=== PATIENT | male | born 1945 | race Caucasian/White ===

== ENCOUNTER 2017-02-09 14:56 | Outpatient (CLI) | payer MEDICARE, OTHER ==
--- NOTE | 2017-02-09 16:04 | CT Report ---
CT OF CHEST FOR LUNG CANCER SCREENIN02/09/2017 CLINICAL INDICATION: A 71-year-old current smoker with [id number] history of smoking. COMPARISON: 12/18/2015. TECHNIQUE: Axial CT images of the chest were obtained without intravenous contrast, using low dose screening technique. FINDINGS: The heart and great vessels demonstrate atherosclerotic calcifications, mild. There is a new noncalcified pulmonary nodule in the posteromedial right upper lobe (axial lung window image 63), measuring 1.4 x 1.1 cm. The previously noted calcified granulomas are stable, and there is minimal atelectasis in the medial right middle lobe. No left-sided pulmonary nodule is identified. No effusion or pneumothorax is present. Limited evaluation of upper abdominal structures demonstrates normal adrenal glands. The osseous structures demonstrate degenerative changes. IMPRESSION: NEW 1.4 X 1.1 CM NONCALCIFIED PULMONARY NODULE IN THE POSTERIOR RIGHT UPPER LOBE. RECOMMENDATION: FURTHER EVALUATION WITH EITHER PET/CT OR BIOPSY IS RECOMMENDED. LUNG RADS CATEGORY 4B--SUSPICIOUS. In accordance with CT protocol optimization, one or more of the following dose reduction techniques were utilized for this exam: automated exposure control, adjustment of mA and/or KV based on patient size, or use of iterative reconstructive technique. JOB #: [id number] EXT JOB #: [id number] ANA LUISA
== END 2017-02-09 14:57 | disposition home or self-care (01) ==
LOC: DI 14:56
PROVIDERS: ATTEND Family Medicine
DX: Z12.2 Encounter for screening for malignant neoplasm of respiratory organs (principal); F17.210 Nicotine dependence, cigarettes, uncomplicated; R91.1 Solitary pulmonary nodule

== ENCOUNTER 2017-03-27 13:31 | Outpatient (CLI) | payer MEDICARE, OTHER | END 2017-03-27 13:32 | disposition home or self-care (01) | LOC: RT 13:31 | PROVIDERS: ATTEND Thoracic Surgery (Cardiothoracic Vascular Surgery) | DX: R91.1 Solitary pulmonary nodule (principal) | CPT/HCPCS: 94010 ==

== ENCOUNTER 2017-08-27 08:00 | Outpatient (CLI) | payer MEDICARE, OTHER ==
[2017-08-27 18:43] LABS: EOSINOPHILS # (AUTO) 0.1 10^3/uL (0.0-0.7); EOSINOPHILS % (AUTO) 2.9 %; HGB - HEMOGLOBIN 12.6 g/dL (14.0-18.0); LYMPHOCYTES # (AUTO) 1.2 10^3/uL (1.5-3.5); MEAN CORPUSCULAR HEMOGLOBIN 30.7 pg (27.0-31.0); MEAN CORPUSCULAR HGB CONC 33.5 g/dL (32.0-36.0); MEAN CORPUSCULAR VOLUME 91.9 fL (80.0-94.0); MEAN PLATELET VOLUME 7.1 fL (7.4-11.4); MONOCYTES # (AUTO) 0.6 10^3/uL (0.0-1.0); MONOCYTES % (AUTO) 11.9 %; NEUTROPHILS % (AUTO) 60.2 %; PLT - PLATELET COUNT 206 10^3/uL (130-450); RED CELL DISTRIBUTION WIDTH 14.4 % (12.0-15.0); WHITE BLOOD COUNT 4.9 x10^3/uL (4.8-10.8)
[2017-08-27 19:04] LABS: HB2 TOTAL 13.5 g/dL; HEMOGLOBIN A1C 0.54 g/dL; HEMOGLOBIN A1C % 5.8 % (4.6-6.2)
[2017-08-27 19:05] LABS: ALBUMIN 4.6 g/dL (3.2-5.5); ALBUMIN/GLOBULIN RATIO 1.5 (1.0-2.2); ALKALINE PHOSPHATASE 72 IU/L (42-121); ALT ALANINE AMINOTRANSFERASE 20 IU/L (10-60); AST ASPARTATE AMINOTRANSFERASE 25 IU/L (10-42); BILIRUBIN,TOTAL 0.7 mg/dL (0.2-1.0); BUN - BLOOD UREA NITROGEN 14 mg/dL (6-20); CALCIUM 9.4 mg/dL (8.5-10.3); CARBON DIOXIDE - CO2 32 mmol/L (21-32); CHLORIDE 91 mmol/L (101-111); CHOL/HDL RATIO 1.9 (<5.0); CHOLESTEROL 199 mg/dL; CREATININE 0.8 mg/dL (0.6-1.2); GFR - MDRD 95 (>89); GLUCOSE 73 mg/dL (70-100); HDL CHOLESTEROL 106 mg/dL; LDL CHOLESTEROL,CALCULATED 81 mg/dL; LDL/HDL RATIO 0.8 (<3.6); SODIUM 134 mmol/L (135-145); TOTAL PROTEIN 7.7 g/dL (6.7-8.2); VLDL CHOLESTEROL 12 mg/dL
== END 2017-08-27 08:01 | disposition home or self-care (01) ==
LOC: LAB.WCP 08:00
PROVIDERS: ATTEND Family Medicine
DX: R73.01 Impaired fasting glucose (principal); I10 Essential (primary) hypertension; R97.20 Elevated prostate specific antigen [PSA]; I48.91 Unspecified atrial fibrillation
CPT/HCPCS: 36415; 80053; 80061; 83036; 83721; 84153; 85025

== ENCOUNTER 2018-04-07 08:00 | Outpatient (CLI) | payer MEDICARE, OTHER | END 2018-04-07 08:01 | disposition home or self-care (01) | LOC: LAB.R 08:00 | PROVIDERS: ATTEND Nurse Practitioner | DX: R19.7 Diarrhea, unspecified (principal) | CPT/HCPCS: 83630; 87045; 87046; 87177; 87209; 87493 ==

== ENCOUNTER 2018-06-15 13:56 | Emergency (ER) | payer MEDICARE, OTHER ==
--- NOTE | 2018-06-15 16:48 | ED Physician Documentation ---
PD HPI MALE - Stated complaint Stated Complaint: MALE - Chief complaint Chief Complaint: General - History obtained from History obtained from: Patient - History of Present Illness Timing - onset: How many days ago (few) Timing - duration: Days (few) Timing - details: Gradual onset Associated symptoms: Scrotal swelling, Other (legs with some edema as well). No: Dysuria, Urinary frequency, Hematuria, Discharge, Genital sore / lesion, Testiclar pain Similar symptoms before: Diagnosis (has had leg swelling and some mild scrotal swelling in the past. Not this degree of swelling ever before.) Review of Systems Constitutional: denies: Fever, Chills Nose: denies: Rhinorrhea / runny nose, Congestion Throat: denies: Sore throat Cardiac: denies: Chest pain / pressure Respiratory: denies: Dyspnea, Cough GI: denies: Nausea, Vomiting, Diarrhea : denies: Dysuria, Frequency Skin: denies: Rash, Lesions PD PAST MEDICAL HISTORY - Past Medical History Cardiovascular: Hypertension, Atrial fibrillation Respiratory: COPD Endocrine/Autoimmune: None GI: None : None HEENT: None Psych: None Musculoskeletal: Chronic back pain Derm: None - Past Surgical History General: Appendectomy, Hiatal hernia repair Ortho: Spine surgery HEENT: Tonsil/Adenoidectomy - Present Medications Home Medications: Ambulatory Orders Medication Instructions Recorded Confirmed Diltiazem HCl [Dilt-Xr] 1 cap PO BID 10/21/17 05/11/18 Furosemide 1 tab PO DAILY 10/21/17 05/11/18 Gabapentin 5 tab PO DAILY 10/21/17 05/11/18 Methadone HCl 1.5 tab PO TID 10/21/17 05/11/18 Multivit-Min/FA/Lycopen/Lutein 1 tab PO DAILY 10/21/17 05/11/18 [Centrum Silver Men Tablet] Potassium Chloride [Klor-Con M20] 1 tab PO DAILY 10/21/17 05/11/18 Potassium/Calcium/Magnes/Manga 2 packet PO DAILY 10/21/17 05/11/18 [Emergen-C Electro Mix Packet] Rivaroxaban [Xarelto] 1 tab PO DAILY 10/21/17 05/11/18 Tamsulosin HCl [Flomax] 1 cap PO DAILY 10/21/17 05/11/18 Trazodone HCl 1 tab PO DAILY 10/21/17 05/11/18 cloNIDine [Catapres] 1 tab PO BID 10/21/17 05/11/18 guaiFENesin [Mucinex] 1 tab PO DAILY 10/21/17 05/11/18 - Allergies Allergies/Adverse Reactions: Allergies Allergy/AdvReac Type Severity Reaction Status Date / Time No Known Drug Allergies Allergy Verified 06/15/18 14:14 PD ED PE NORMAL - Vitals Vital signs reviewed: Yes - General General: Alert and oriented X 3, No acute distress, Well developed/nourished - HEENT HEENT: Pharynx benign - Neck Neck: Supple, no meningeal sign, No adenopathy - Cardiac Cardiac: RRR, No murmur - Respiratory Respiratory: Clear bilaterally - Abdomen Abdomen: Soft, Non tender, Non distended - Male Male : Other (general scrotal edema without tenderness. Mild redness/pink, without deeper red nor tenderness. No inguinal adenopathy. ) - Derm Derm: Normal color, Warm and dry - Extremities Extremities: No calf tenderness / cord, Other (1+ edema in both lower legs, up to the knee. ) - Neuro Neuro: Alert and oriented X 3, No motor deficit, No sensory deficit Results - Vitals Vitals: Oxygen O2 Source Room air - Labs Labs: Laboratory Tests 06/15/18 06/15/18 06/15/18 17:26 17:26 17:26 WBC 5.2 RBC 3.79 L Hgb 10.6 L Hct 32.7 L MCV 86.4 MCH 28.0 MCHC 32.4 RDW 14.9 Plt Count 237 MPV 6.8 L Neut # (Auto) 3.7 Lymph # (Auto) 0.9 L [place] # (Auto) 0.5 Eos # (Auto) 0.1 Baso # (Auto) 0.1 Absolute Nucleated RBC 0.00 Nucleated RBC % 0.0 Sodium 133 L Potassium 3.0 L Chloride 91 L Carbon Dioxide 34 H Anion Gap 8.0 BUN 9 Creatinine 0.9 Estimated GFR (MDRD) 83 L Glucose 123 H Calcium 8.7 Magnesium 1.8 Total Bilirubin 0.6 AST 22 ALT 13 Alkaline Phosphatase 101 B-Natriuretic Peptide 117 H Total Protein 7.8 Albumin 3.7 Globulin 4.1 Albumin/Globulin Ratio 0.9 L Lipase 17 L - Rads (name of study) scrotal U/S Radiology: Prelim report reviewed (thickened scrotal wall c/w edema/swelling. Testicles normal. ), See rad report PD MEDICAL DECISION MAKING - ED course Complexity details: considered differential (scrotal edema and some leg edema. No abd distension nor sifting dullness to suggest peritoneal fluid. Will presume fluid overload, but does not have dyspnea. Does not look like scrotal infection. ), d/w patient Departure - Departure Disposition: 01 Home, Self Care Clinical Impression: Scrotal edema Condition: Stable Record reviewed to determine appropriate education?: Yes Instructions: ED Edema Legs Bilateral Follow-Up: Michael Pardo, DO [Primary Care Provider] - Comments: Take your usual current medications. Add a second dose of your diuretic furosemide and the potassium supplement K chlor at lunchtime for the next 3-4 days. Recheck if your edema is not decreased over the next few days and follow- up with your primary care anyway later this week. Discharge Date/Time: 06/15/18 20:06
[2018-06-15] MEDS ORDERED: FUROSEMIDE 20 MG/2 ML VIAL IVP STA (17:08)
[2018-06-15 17:34] LABS: BASOPHILS # (AUTO) 0.1 10^3/uL (0.0-0.1); EOSINOPHILS # (AUTO) 0.1 10^3/uL (0.0-0.7); EOSINOPHILS % (AUTO) 1.7 %; HGB - HEMOGLOBIN 10.6 g/dL (14.0-18.0); LYMPHOCYTES # (AUTO) 0.9 10^3/uL (1.5-3.5); LYMPHOCYTES % (AUTO) 16.8 %; MEAN CORPUSCULAR HGB CONC 32.4 g/dL (32.0-36.0); MEAN CORPUSCULAR VOLUME 86.4 fL (80.0-94.0); MEAN PLATELET VOLUME 6.8 fL (7.4-11.4); MONOCYTES # (AUTO) 0.5 10^3/uL (0.0-1.0); MONOCYTES % (AUTO) 10.1 %; NEUTROPHILS # (AUTO) 3.7 10^3/uL (1.5-6.6); NEUTROPHILS % (AUTO) 70.4 %; PLT - PLATELET COUNT 237 10^3/uL (130-450); RED BLOOD COUNT 3.79 10^6/uL (4.70-6.10); RED CELL DISTRIBUTION WIDTH 14.9 % (12.0-15.0); WHITE BLOOD COUNT 5.2 x10^3/uL (4.8-10.8)
[2018-06-15 17:45] LABS: ALBUMIN 3.7 g/dL (3.2-5.5); ALBUMIN/GLOBULIN RATIO 0.9 (1.0-2.2); BILIRUBIN,TOTAL 0.6 mg/dL (0.2-1.0); CALCIUM 8.7 mg/dL (8.5-10.3); CREATININE 0.9 mg/dL (0.6-1.2); MAGNESIUM 1.8 mg/dL (1.7-2.8); TOTAL PROTEIN 7.8 g/dL (6.7-8.2)
[2018-06-15] MEDS ORDERED: POTASSIUM BICARB 25 MEQ TABLET PO STA (19:25)
--- NOTE | 2018-06-15 19:52 | Ultrasound Report ---
Reason: scrotal swelling for few days Procedure Date: 06/15/2018 Accession Number: [id number] / [id number] Procedure: US - Testicle w/Doppler Limited CPT Code: FULL RESULT: EXAM: SCROTAL ULTRASOUND EXAM DATE: 06/15/2018 07:17 PM. CLINICAL HISTORY: Scrotal swelling for few days. COMPARISON: None. TECHNIQUE: Real-time scanning was performed with static images obtained. Color-flow images were utilized. FINDINGS: Right: Testis: 3 x 3.2 x 4.6 cm. Normal size and echotexture. No mass, calcification, or abnormal blood flow. Epididymis: 1 x 0.9 x 0.7 cm. Normal size and echotexture. No mass or abnormal blood flow. Apparent slow flow is noted. Hydrocele: Small right hydrocele is noted. Varicocele: None. Left: Testis: 3.1 x 3 x 3.6 cm. Normal size and echotexture. No mass, calcification, or abnormal blood flow. Epididymis: 0.6 x 1.1 x 0.7 cm. Normal size and echotexture. No mass or abnormal blood flow. Apparent slow flow noted. Hydrocele: Small left hydrocele is noted. Varicocele: None. Other: Marked scrotal wall thickening without evidence of shadowing. On the right, the scrotal wall measures 2.9 cm in AP diameter. On the left, the scrotal wall measures 3.5 cm and the AP diameter. IMPRESSION: 1. No testicular mass or evidence of torsion. 2. No abnormal flow or imaging characteristics of the epididymis. 3. Small bowel hydroceles. 4. Marked bilateral scrotal wall thickening. No dirty shadowing is noted. Evaluate for inflammation, infection or soft tissue edema. RADIA
[2018-06-15 20:06] VITALS: BP 122/69
== END 2018-06-15 20:06 | disposition home or self-care (01) ==
LOC: ED 13:56
DX: N50.89 Other specified disorders of the male genital organs (principal); I10 Essential (primary) hypertension; J44.9 Chronic obstructive pulmonary disease, unspecified; Z86.79 Personal history of other diseases of the circulatory system; Z79.899 Other long term (current) drug therapy
CPT/HCPCS: 36415; 76870; 80053; 83690; 83735; 83880; 85025; 93976; 96374; 99283; A9270

== ENCOUNTER 2018-10-20 13:55 | Outpatient (CLI) | payer MEDICARE, OTHER ==
[2018-10-20] MEDS ORDERED: IOVERSOL 320 100 ML VIAL IVP ONE ×2 (14:09→15:26)
[2018-10-20 14:38] LABS: CREATININE 0.7 mg/dL (0.6-1.2)
--- NOTE | 2018-10-20 15:58 | CT Report ---
Reason: HEMOPTYSIS,LUNG CANCER,RIGHT UPPER LOBE Procedure Date: 10/20/2018 Accession Number: [id number] / [id number] Procedure: CT - CHEST W CPT Code: FULL RESULT: EXAM: CT CHEST EXAM DATE: 10/20/2018 03:05 PM. CLINICAL HISTORY: Hemoptysis, lung Cancer, right UPPER LOBE. COMPARISONS: CHEST W/ 04/26/2018 3:05 PM. TECHNIQUE: Routine helical CT imaging was performed through the chest. IV contrast: None. Reconstructions: Coronal and sagittal. In accordance with CT protocol optimization, one or more of the following dose reduction techniques were utilized for this exam: automated exposure control, adjustment of mA and/or KV based on patient size, or use of iterative reconstructive technique. FINDINGS: Lungs/Pleura: Bullous emphysema. Multiple dominant findings as follows: 1. The primary finding is a lobulated right lung medial soft tissue mass adjacent to the mediastinal border, abutting the surgical suture line, measuring 3.6 x 4.9 cm diameter (previous 2.5 x 2.8 cm diameter). 2. Mild parenchymal scarring right apex medially not previously present. 3. The previously described 3 mm maximal diameter anterior lateral superior segment right lower lobe nodule now measures 6 mm maximal diameter; it is best seen on image 33, series 4 and on sagittal MPR image 62, series 7. 5. There is an approximate 21 mm maximal diameter medial right upper lobe pleural-based mass, seen best on image 19, series 4, previously measured 8 mm maximal diameter. 6. There is interval development of a 10 mm maximal diameter mass in the posterior right upper lobe seen best on image 20, series 4. 7. There is a 22 x 18 mm diameter pleural-based medial right lower lobe mass which was previously approximate 5 mm maximal diameter. No other obvious abnormality. Mediastinum: Minimal right hilar adenopathy. There is a dominant 18 mm maximal diameter left hilar lymph node. Bones: Unremarkable. Visualized Abdomen: Unremarkable. Other: None. IMPRESSION: 1. Overall disease progression. 2. The dominant above described medial right lung pleural-based mass has significantly grown. 3. Multiple other right-sided pulmonary nodules have grown, as described above. 4. There are 2 other dominant pleural-based masses are described above, one in the medial right upper lobe and the other in the more inferior medial right lower lobe. 5. Bilateral hilar adenopathy. RADIA
== END 2018-10-20 13:56 | disposition home or self-care (01) ==
LOC: DI 13:55
PROVIDERS: ATTEND Family Medicine
DX: C34.11 Malignant neoplasm of upper lobe, right bronchus or lung (principal); R04.2 Hemoptysis; R59.0 Localized enlarged lymph nodes; J43.9 Emphysema, unspecified
CPT/HCPCS: 36415; 71260; 82565; Q9967